=== PATIENT | male | born 1940 | race Caucasian/White ===

== ENCOUNTER → 2018-11-02 | Outpatient (CLI) | payer MEDICARE, OTHER | END | disposition home or self-care (01) | LOC: SHCH 12:50 | PROVIDERS: ATTEND Internal Medicine Cardiovascular Disease | DX: I10 Essential (primary) hypertension (principal); I73.9 Peripheral vascular disease, unspecified; I87.2 Venous insufficiency (chronic) (peripheral) | CPT/HCPCS: 93306; 93925; 93970 ==

== ENCOUNTER → 2018-11-25 | Outpatient (CLI) | payer MEDICARE, OTHER ==
[~2018-11-25] MED LIST: IOHEXOL-350 50ML VIAL IV ONE; IOHEXOL-350 75 ML VIAL IV ONE
== END | disposition home or self-care (01) ==
LOC: RAH 07:59
PROVIDERS: ATTEND Internal Medicine Cardiovascular Disease
DX: I73.9 Peripheral vascular disease, unspecified (principal); I70.8 Atherosclerosis of other arteries; M47.815 Spondylosis without myelopathy or radiculopathy, thoracolumbar region; Z96.653 Presence of artificial knee joint, bilateral
CPT/HCPCS: 75635; Q9967 ×2

== ENCOUNTER → 2019-11-24 | Outpatient (CLI) | payer MEDICARE, OTHER | LOC: SHCH 07:54 | PROVIDERS: ATTEND Internal Medicine Cardiovascular Disease | DX: I70.0 Atherosclerosis of aorta (principal); I73.9 Peripheral vascular disease, unspecified | CPT/HCPCS: 93925; 93978 ==

== ENCOUNTER → 2020-04-05 | Outpatient (CLI) | payer MEDICARE, OTHER | END | disposition home or self-care (01) | LOC: SHCH 13:12 | PROVIDERS: ATTEND Internal Medicine Cardiovascular Disease | DX: I48.91 Unspecified atrial fibrillation (principal) | CPT/HCPCS: 93306; 93356 ==

== ENCOUNTER → 2020-04-26 | Outpatient (CLI) | payer MEDICARE, OTHER | END | disposition home or self-care (01) | LOC: SHCH 09:47 | PROVIDERS: ATTEND Internal Medicine Cardiovascular Disease | DX: I65.23 Occlusion and stenosis of bilateral carotid arteries (principal) | CPT/HCPCS: 93880 ==

== ENCOUNTER 2020-05-30 09:36 | Day surgery (SDC) | payer MEDICARE, OTHER ==
[2020-05-28 11:28] LABS: BASOPHILS % (AUTO) 0.5 % (0.0-5.0); EOSINOPHILS % (AUTO) 2.2 % (0.0-8.0); HEMATOCRIT 32.1 % (42-54); LYMPHOCYTES % (AUTO) 20.2 % (21.0-51.0); MEAN CORPUSCULAR HGB CONC 31.2 g/dL (32.0-36.0); MONOCYTES % (AUTO) 7.6 % (3.0-13.0); NEUTROPHILS % (AUTO) 69.2 % (40.0-77.0); PLATELET COUNT (AUTO) 136 K/uL (130-400); RED BLOOD CELL COUNT(AUTO) 3.45 MIL/uL (4.50-6.20); RED CELL DISTRIBUTION WIDTH 15.3 % (11.0-15.5); WHITE BLOOD COUNT (AUTO) 6.3 K/uL (4.8-10.8)
[2020-05-28 11:40] LABS: CREATININE 1.4 mg/dL (0.5-1.5); POTASSIUM 4.4 mmol/L (3.5-5.1)
[2020-05-28 11:40] LABS: APPEARANCE,URINE Clear (CLEAR); BILIRUBIN,URINE Negative (NEGATIVE); COLOR,URINE Yellow (YELLOW); GLUCOSE, URINE (UA) Negative (NEGATIVE); KETONES,URINE Negative (NEGATIVE); LEUKOCYTE ESTERASE ,URINE Negative (NEGATIVE); NITRATE,URINE Negative (NEGATIVE); OCCULT BLOOD,URINE Negative (NEGATIVE); PROTEIN,URINE Trace mg/dL (NEGATIVE)
[2020-05-28 11:44] LABS: INR 1.07 (0.85-1.15); PARTIAL THROMBOPLASTIN TIME 28.7 SEC (26.3-35.5); PROTHROMBIN TIME 11.5 SEC (9.6-11.6)
[2020-05-28 11:47] LABS: BACTERIA,URINE Rare /HPF (None Seen); RBC,URINE 0-1 /HPF (0-1); SQUAMOUS EPITHELIAL CELL,UR Rare /HPF (0-2); WBC,URINE 0-1 /HPF (0-1)
[2020-05-29 14:24] VITALS: BP 188/79
[~2020-05-30] VITALS: Ht 175.3 cm; Wt 101.0 kg
[2020-05-30 09:30] VITALS: BP 151/85
[~2020-05-30 09:36] MED LIST changes: +ALBU8.5H8 IH; +ATEN25TA PO; +ATOR20TA PO; +DOXA2TAB2 PO; +DULO60CA44 PO; +FURO40TA5 PO; -IOHEXOL-350 50ML VIAL IV ONE; -IOHEXOL-350 75 ML VIAL IV ONE; +LOSA50TA64 PO; +POTA10TA11 PO; +RIVA20TA PO; +SODIUM CHLORIDE 0.9% 500ML 500 ML IV SCH; +vitamin d3 PO
[2020-06-19] MEDS ORDERED: PRIMIDONE PO (12:00)
== END 2020-05-30 10:40 | disposition home or self-care (01) ==
LOC: DAH 09:36
PROVIDERS: ATTEND Internal Medicine Cardiovascular Disease
DX: I73.9 Peripheral vascular disease, unspecified (principal); I48.0 Paroxysmal atrial fibrillation; I50.43 Acute on chronic combined systolic (congestive) and diastolic (congestive) heart failure; I47.1 Supraventricular tachycardia; F17.200 Nicotine dependence, unspecified, uncomplicated; Z79.82 Long term (current) use of aspirin; Z79.899 Other long term (current) drug therapy; Z53.8 Procedure and treatment not carried out for other reasons
CPT/HCPCS: 36415; 80048; 81001; 85025; 85610; 85730; A4215; A4216; A4221; A4222; A4223 ×3; A4606; A4663

== ENCOUNTER 2020-06-20 09:50 | Day surgery (SDC) | payer MEDICARE ==
[2020-06-18 14:14] LABS: BASOPHILS % (AUTO) 0.5 % (0.0-5.0); EOSINOPHILS % (AUTO) 1.6 % (0.0-8.0); HEMATOCRIT 31.7 % (42-54); LYMPHOCYTES % (AUTO) 18.8 % (21.0-51.0); MEAN CORPUSCULAR HEMOGLOBIN 28.7 pg (27.0-33.0); MEAN CORPUSCULAR HGB CONC 31.5 g/dL (32.0-36.0); MEAN CORPUSCULAR VOLUME 91.1 fL (79-99); MONOCYTES % (AUTO) 8.4 % (3.0-13.0); NEUTROPHILS % (AUTO) 70.2 % (40.0-77.0); PLATELET COUNT (AUTO) 139 K/uL (130-400); RED BLOOD CELL COUNT(AUTO) 3.48 MIL/uL (4.50-6.20); RED CELL DISTRIBUTION WIDTH 15.3 % (11.0-15.5); WHITE BLOOD COUNT (AUTO) 7.6 K/uL (4.8-10.8)
[2020-06-18 14:17] LABS: APPEARANCE,URINE Clear (CLEAR); BILIRUBIN,URINE Negative (NEGATIVE); COLOR,URINE Yellow (YELLOW); GLUCOSE, URINE (UA) Negative (NEGATIVE); KETONES,URINE Negative (NEGATIVE); LEUKOCYTE ESTERASE ,URINE Negative (NEGATIVE); NITRATE,URINE Negative (NEGATIVE); OCCULT BLOOD,URINE Negative (NEGATIVE); PROTEIN,URINE Trace mg/dL (NEGATIVE)
[2020-06-18 14:24] LABS: CREATININE 1.3 mg/dL (0.5-1.5); POTASSIUM 4.7 mmol/L (3.5-5.1)
[2020-06-18 14:33] LABS: BACTERIA,URINE Rare /HPF (None Seen); RBC,URINE 0-1 /HPF (0-1); SQUAMOUS EPITHELIAL CELL,UR Rare /HPF (0-2); WBC,URINE 0-1 /HPF (0-1)
[2020-06-18 15:32] LABS: INR 1.05 (0.85-1.15); PARTIAL THROMBOPLASTIN TIME 26.4 SEC (26.3-35.5); PROTHROMBIN TIME 11.3 SEC (9.6-11.6)
--- NOTE | 2020-06-19 12:05 | NUR ---
Reported to Tony Monsalve outsole splicer 1.3, no new orders okay to proceed also reported xarelto stopped on 06/16/20 1000am, no concerns.
[2020-06-20] VITALS (9 sets, daily range): BP systolic 142–162; BP diastolic 68–83
[~2020-06-20] VITALS: Ht 177.8 cm; Wt 100.2 kg
[~2020-06-20 09:50] MED LIST changes: +PRIMIDONE PO
[2020-06-20] MEDS ORDERED: SODIUM CHLORIDE 0.9% 1000ML 1,000 ML IV ONE ×2 (10:04→10:42)
[2020-06-20] MEDS ORDERED: NITROGLYCERIN 2 MG/VIAL VIAL IV ONE (13:05)
[2020-06-20] MEDS ORDERED: LIDOCAINE HCL 2% 20ML ONE (13:05)
[2020-06-20] MEDS ORDERED: HEPARIN SODIUM 1000UNIT/ML 10ML VIAL ONE (13:05)
[2020-06-20] MEDS ORDERED: IODIXANOL 320 MG/ML 100 ML VIAL ONE (13:05)
[2020-06-20] MEDS ORDERED: MIDAZOLAM HCL 1 MG/ML 2ML VIAL ONE (13:41)
[2020-06-20] MEDS ORDERED: FENTANYL CITRATE PF 50 MCG/1 ML 2ML VIAL ONE (13:41)
[2020-06-20] MEDS ORDERED: GLUCAGON 1MG KIT 1 MG ML IM PRN (15:00)
[2020-06-20] MEDS ORDERED: SODIUM CHLORIDE 0.9% 1000ML 1,000 ML IV SCH (15:00)
[2020-06-20] MEDS ORDERED: DEXTROSE 50%-WATER 50 ML DISP.SYRIN IV PRN (15:00)
--- NOTE | 2020-06-20 16:30 | NUR ---
HANDOFF REPORT GIVEN TO KHRIS JO RN USING SBAR AT PATIENT'S BEDSIDE. PATIENT AAOX3, VITAL SIGNS STABLE. PRESSURE DRESSING TO RIGHT ARM DRY/INTACT. RADIAL PULSES STRONG, AT BEDSIDE.
--- NOTE | 2020-06-20 16:35 | NUR ---
PRESSURE DRESSING REM,AMIRA FROM LEFT ARM. PATIENT TOLERATED WELL. NO BLEEDING/NO HEMATOMA NOTED. RADIAL PULSES PRESENT AND STRONG BILATERALLY. PATIENT INSTRUCTED TO KEEP ARM STRAIGHT, DO NOT BEND/FLEX.
--- NOTE | 2020-06-20 17:00 | NUR ---
SITE CHECK DRESSING TO RIGHT ARM NOTED CLEAN AND DRY, PULSES DISTALLY TO EXT ARE STRONG AND PALPABLE, NO SIGNS OF HEMATOMA.
--- NOTE | 2020-06-20 17:30 | NUR ---
SITE CHECK DRESSING TO RIGHT ARM NOTED CLEAN AND DRY, PULSES DISTALLY TO EXT ARE STRONG AND PALPABLE, NO SIGNS OF HEMATOMA.
--- NOTE | 2020-06-20 18:00 | NUR ---
DAY PT DC PT TAKEN TO ER MAIN ENTRANCE VIA WHEELCHAIR, NOTED IN NO APPARENT DISTRESS.
--- NOTE | 2020-06-20 18:00 | NUR ---
SITE CHECK DRESSING TO RIGHT ARM NOTED CLEAN AND DRY, PULSES DISTALLY TO EXT ARE STRONG AND PALPABLE, NO SIGNS OF HEMATOMA.
== END 2020-06-20 18:00 | disposition home or self-care (01) ==
LOC: DAH 09:50
PROVIDERS: ATTEND Internal Medicine Cardiovascular Disease
DX: I70.213 Atherosclerosis of native arteries of extremities with intermittent claudication, bilateral legs (principal); I70.92 Chronic total occlusion of artery of the extremities; I48.0 Paroxysmal atrial fibrillation; Q25.49 Other congenital malformations of aorta; I11.0 Hypertensive heart disease with heart failure; I50.43 Acute on chronic combined systolic (congestive) and diastolic (congestive) heart failure; I47.1 Supraventricular tachycardia; E78.5 Hyperlipidemia, unspecified; F41.9 Anxiety disorder, unspecified; F32.9 Major depressive disorder, single episode, unspecified; G20 Parkinson's disease; J44.9 Chronic obstructive pulmonary disease, unspecified; F17.200 Nicotine dependence, unspecified, uncomplicated; Z79.82 Long term (current) use of aspirin; Z79.899 Other long term (current) drug therapy; Z79.01 Long term (current) use of anticoagulants; Z82.49 Family history of ischemic heart disease and other diseases of the circulatory system; Z81.8 Family history of other mental and behavioral disorders; Z84.1 Family history of disorders of kidney and ureter; Z72.89 Other problems related to lifestyle; Z98.890 Other specified postprocedural states
CPT/HCPCS: 36247; 36415; 75716; 80048; 81001; 85025; 85610; 85730; A4215; A4216; A4221; A4222; A4223 ×3; A4606; A4663; C1769 ×2; C1887; C1893; C1894 ×3; J1644 ×2; J2250; J3010; J3490 ×2; J7030 ×2; Q9967; 75630; 75774; 99156; 99157

== ENCOUNTER → 2020-10-03 | Outpatient (CLI) | payer MEDICARE ==
[~2020-10-03] MED LIST changes: -SODIUM CHLORIDE 0.9% 500ML 500 ML IV SCH
== END | disposition home or self-care (01) ==
LOC: RAH 13:45
PROVIDERS: ATTEND Internal Medicine Cardiovascular Disease
DX: R60.9 Edema, unspecified (principal)
CPT/HCPCS: 93970